=== PATIENT | male | born 1990 | race African-American/Black ===

== ENCOUNTER 2018-03-27 23:22 | Emergency (ER) | payer OTHER ==
[~2018-03-27] VITALS: Ht 185.4 cm; Wt 81.0 kg
[2018-03-28] MEDS: SODIUM CHLORIDE 0.9% 1,000 ML IV ONE (00:19)
[2018-03-28 00:33] LABS: BASOPHILS % 0.4 % (0.0-2.0); EOSINOPHILS % 0.3 % (0.0-5.0); HEMATOCRIT. 36.2 % (42.0-52.0); HEMOGLOBIN. 12.4 g/dL (14.0-18.0); LYMPHOCYTES % 7.1 % (20.0-50.0); MEAN CORPUSCULAR HEMOGLOBIN 30.9 pg (28.0-32.0); MEAN PLATELET VOLUME 8.8 fl (7.4-10.4); MONOCYTES % 10.2 % (2.0-8.0); PLATELET 157 x1000/uL (130-400); RED BLOOD CELL COUNT 4.02 mill/uL (4.7-6.1); RED CELL DISTRIBUTION WIDTH 12.7 % (11.6-14.6)
[2018-03-28 00:38] LABS: CHLORIDE 107 mEq/L (98-107)
[2018-03-28 00:41] LABS: ETHANOL BLOOD < 10 mg/dL; INR 1.1; PROTHROMBIN TIME 11.1 sec (9.1-11.1)
[2018-03-28 03:44] LABS: CLARITY URINE CLEAR (CLEAR); COLOR URINE YELLOW (YELLOW); KETONES URINE NEGATIVE (NEGATIVE); LEUKOCYTE ESTERASE URINE NEGATIVE (NEGATIVE); NITRITE URINE NEGATIVE (NEGATIVE); OCCULT BLOOD URINE NEGATIVE (NEGATIVE); PROTEIN URINE NEGATIVE (NEGATIVE); SPECIFIC GRAVITY URINE 1.017 (1.005-1.030); UROBILINOGEN URINE 0.2 E.U./dL (0.2-1.0)
[2018-03-28 03:48] LABS: *AMPHETAMINES SCREEN URINE NEGATIVE (NEGATIVE); *BARBITURATES SCREEN URINE NEGATIVE (NEGATIVE); *BENZODIAZEPINES SCREEN URINE NEGATIVE (NEGATIVE)
[2018-03-28 03:49] LABS: *COCAINE SCREEN URINE NEGATIVE (NEGATIVE); CANNABINOID URINE SCREEN PRESUMTIVE POSITIVE (NEGATIVE); METHADONE URINE SCREEN NEGATIVE (NEGATIVE); OPIATES URINE SCREEN NEGATIVE (NEGATIVE); PHENCYCLIDINE URINE SCREEN NEGATIVE (NEGATIVE)
[2018-03-28 04:15] VITALS: BP 115/71
== END 2018-03-28 04:05 | disposition home or self-care (01) ==
LOC: ER 23:22
DX: R55 Syncope and collapse (principal); R61 Generalized hyperhidrosis; R01.1 Cardiac murmur, unspecified; Z72.89 Other problems related to lifestyle
CPT/HCPCS: 36415; 71045; 80053; 80305; 81003; 82962; 84484; 85025; 85610; 93005; 96360; 96361; 99284; G0482; J7030